=== PATIENT | male | born 1945 | race Caucasian/White ===

== ENCOUNTER 2018-01-12 08:57 | Outpatient (CLI) | END 2018-01-12 08:58 | disposition home or self-care (01) | LOC: LAB 08:57 | PROVIDERS: ATTEND Family Medicine | DX: I10 Essential (primary) hypertension (principal) | CPT/HCPCS: 36415; 80053; 80061; 85025 ==

== ENCOUNTER 2018-05-10 07:35 | Outpatient (CLI) | payer OTHER ==
--- NOTE | 2018-05-10 11:27 | DI ---
EXAM: Radiographs, cervical spine HISTORY: Neck pain. COMPARISON: None available. TECHNIQUE: Five views. FINDINGS: Curvature and alignment are normal. Prevertebral body and intervertebral disc heights are maintained. Mild multilevel endplate osteophyte formation and uncovertebral hypertrophy noted with more moderate facet arthropathy. No fracture or subluxation identified. Prevertebral soft tissues a re unremarkable. The lung apices are clear. IMPRESSION: Mild to moderate multilevel degenerative changes..
--- NOTE | 2018-05-10 11:49 | CT ---
EXAM: CT abdomen with and without contrast. CT pelvis with and without contrast. HISTORY: Right lower quadrant pain. COMPARISON: 06/27/2012. TECHNIQUE: Multiple axial images of the abdomen and pelvis were obtained prior to and following intr avenous administration of 100 mL of Visipaque 320, low osmolar. Images reformatted in the sagittal a nd coronal plane. FINDINGS: Calcified granulomatous changes noted in the lung bases. Degenerative changes noted in th e spine and hips. Gallbladder is absent. The liver, pancreas, spleen, adrenal glands, and kidneys are without acute ab normality. Nonobstructing bilateral renal calculi are present measuring up to 0.3 cm on the left and 0.1 cm on the right. Probable left renal cyst on postcontrast axial image 31. No ureteral or bladd er calculi are seen. Bladder appears normal. Prostate gland is enlarged. The bowel is normal in course and caliber without evidence for obstruction or inflammatory process. Colonic diverticulosis noted. The appendix is normal. No free fluid, free air or lymphadenopathy id entified. Atherosclerotic calcifications present. IMPRESSION: 1. No acute abnormality within the abdomen or pelvis. 2. Bilateral nephrolithiasis. 3. Diverticulosis. 4. Prostatic enlargement.
== END 2018-05-10 07:36 | disposition home or self-care (01) ==
LOC: RAD 07:35
PROVIDERS: ATTEND Family Medicine
DX: R10.31 Right lower quadrant pain (principal); M54.2 Cervicalgia